=== PATIENT | male | born 1980 | race Caucasian/White ===

== ENCOUNTER 2019-10-11 14:40 | Emergency (ER) | payer BC ==
--- NOTE | 2019-10-11 14:47 | PDOC ---
Rapid Medical Evaluation Time Seen by Provider: 10/11/19 14:44 Medical Evaluation: 10/11/19 14:44 I performed a brief in-person evaluation of this patient. Pt is a 39 y/o male with L great toe pain and swelling since this morning. He woke up with the pain. He states the pain was a 3 this morning but is now a 9/10. He denies any past medical history of allergies to medications. He has not taken anything for his pain. Pertinent physical exam findings: L great toe tender at the IP joint. No ecchymosis appreciated. No infection appreciated. I have ordered the following: Zina, L great toe xr Patient to proceed to [facility] for further evaluation. Discharge Disposition - Diagnosis Pain of left great toe - Referrals - Patient Instructions - Post Discharge Activity
[2019-10-11] MEDS ORDERED: IBUPROFEN 600 MG TABLET (FP) PO ONE (14:48)
[2019-10-11 15:00] VITALS: BP 148/97; PULSE 59; TEMP 98.8; BMI 28.7
--- NOTE | 2019-10-11 15:35 | PDOC ---
History of Present Illness - General Chief Complaint: Pain Stated Complaint: RT TOE SWOLLEN Time Seen by Provider: 10/11/19 14:44 History Source: Patient - History of Present Illness Occurred: reports: this morning Severity: Yes: severe Lower Extremity Pain Location: left: 1st toe Past History - Medical History Allergies/Adverse Reactions: Allergies Allergy/AdvReac Type Severity Reaction Status Date / Time No Known Allergies Allergy Verified 10/11/19 14:49 Home Medications: Ambulatory Orders predniSONE [Deltasone -] 20 mg PO DAILY #13 tablet 10/11/19 COPD: No - Psycho-Social/Smoking History Smoking History: Never smoked - Substance Abuse Hx (Audit-C & DAST Scrn) How often the patient has a drink containing alcohol: 4 0r more times/wk Number of drinks the patient has on a typical day: 5 or 6 How often the patient has six or more drinks on one occasion: Never Score: In Men: 4 or > Positive; In Women: 3 or > Positive: 6 Screen Result (Pos requires Nsg. Audit-10AR): Positive In the last yr the pt used illegal drug/Rx for NonMed reason: No Score: Yes response is considered Positive: 0 Screen Result (Positive result requires Nsg. DAST-10): Negative Review of Systems - Review of Systems Constitutional: No: Chills, Fever *Physical Exam - Vital Signs Last Vital Signs Temp Pulse Resp BP Pulse Ox 98.8 F 59 L 16 148/97 96 10/11/19 14:44 10/11/19 14:44 10/11/19 14:44 10/11/19 14:44 10/11/19 14:44 - Physical Exam General Appearance: Yes: Appropriately Dressed, Mild Distress HEENT: positive: Normal Voice Neck: positive: Supple Respiratory/Chest: negative: Respiratory Distress Extremity: positive: Other (L great toe minimally swollen compared to R w/ sig ttp to IP joint of toe more so than MCPJ, no hot red joint, paronychium non- tender) Integumentary: positive: Dry, Warm Neurologic: positive: Fully Oriented, Alert, Normal Mood/Affect ED Treatment Course - LABORATORY CBC & Chemistry Diagram: 10/11/19 15:12 10/11/19 15:12 - Medications Given in the ED: ED Medications Discontinued Medications Generic Name Dose Route Start Last Admin Trade Name Freq PRN Reason Stop Dose Admin Ibuprofen 600 mg 10/11/19 14:48 10/11/19 14:56 Motrin - PO 10/11/19 14:49 600 mg ONCE ONE Administration Medical Decision Making - Medical Decision Making 10/11/19 15:24 39 yo male, denies any pmhx, here w/ severe L great toe pain and swelling that pt awoke with this am. Pain has persisted throughout the day. No f/c. States he was out drinking last night but denies trauma or other obvious inciting factor. No h/o same. No known h/o gout. No known fmhx of gout see exam Atraumatic L great toe pain Suspect possible new onset gout vs sprain No hot, red joint or fever to suspect infection at this time Dose of motrin in ED XR ordered from triage and wnl -Dc w/ short course prednisone (indomethcin cancelled as pt's creatinine une xpectedly came back 1.6 on labs, unclear etiology, no known renal disease, K wnl, pt informed and told to f/u with PMD for repeat labs and to hydrate at home) -Podiatry f/u given 10/11/19 17:10 Discharge - Discharge Information Problems reviewed: Yes Clinical Impression/Diagnosis: Pain of left great toe Condition: Improved Disposition: HOME - Additional Discharge Information Prescriptions: predniSONE [Deltasone -] 20 mg PO DAILY #13 tablet - Follow up/Referral Referrals: Dale Hays MD [Staff Physician] - - Patient Discharge Instructions Patient Printed Discharge Instructions: Gout, DI for Toe Sprain Additional Instructions: The cause of your pain is unclear at this time. It may be gout given slightly elevated uric acid of 7.8 (normal up to 7.2) Take medication as directed Please follow up with Dr Hays of podiatry in 1 week Your kidney test was mildly elevated to 1.6. Do not take any NSAIDs. Only take the prednisone. Please follow up with your PMD to repeat labs - Post Discharge Activity Work/Back to School Note: Back to Work
[2019-10-11 16:02] LABS: BASO % 0.5 % (0-2.0); EOS % 1.2 % (0-4.5); HEMATOCRIT 44.5 % (35.4-49); HEMOGLOBIN 15.1 GM/dL (11.7-16.9); MCH 30.6 pg (25.7-33.7); MEAN PLT VOLUME 8.5 fl (7.5-11.1); MONO % 6.5 % (3.8-10.2); NEUT % 54.8 % (42.8-82.8); PLATELET COUNT 214 K/MM3 (134-434); RBC 4.94 M/mm3 (4.00-5.60); RDW 13.1 % (11.9-15.9); WHITE BLOOD COUNT 6.6 K/mm3 (4.0-10.0)
[2019-10-11 16:40] LABS: BILIRUBIN,TOTAL 0.4 mg/dL (0.2-1); BLOOD UREA NITROGEN 20.1 mg/dL (7-18); CALCIUM 9.8 mg/dL (8.5-10.1); CREATININE 1.6 mg/dL (0.55-1.3); POTASSIUM 4.3 mmol/L (3.5-5.1); TOT PROT 7.6 g/dl (6.4-8.2); URIC ACID 7.8 mg/dL (2.6-7.2)
== END 2019-10-11 17:13 | disposition home or self-care (01) ==
LOC: JER 14:40
DX: M79.674 Pain in right toe(s) (principal)
CPT/HCPCS: 36415; 73660-TC-LT-FY; 80053; 84550; 85025; 99284-25